=== PATIENT | female | born 1980 ===

== ENCOUNTER 2018-03-02 13:26 | Emergency (ER) | payer MEDICAID, OTHER ==
[~2018-03-02] VITALS: Ht 157.5 cm; Wt 105.6 kg
[~2018-03-02 13:26] MED LIST: ACYC-113; CETI-18 PO; HYDR1TAB12; IBUP-1223 PO; IRON1TAB62 PO; LORA0.5T PO; OMEP-110; OXYC15TA60 PO; Vit D; Vitamin B12 inj
[2018-03-02 14:15] LABS: BASOPHILS # (AUTO) 0.06 x10^3/uL (0-0.1); BASOPHILS % (AUTO) 1 % (0-1); EOSINOPHILS # (AUTO) 0.07 x10^3/uL (0-0.4); EOSINOPHILS % (AUTO) 1 % (1-7); LYMPHOCYTES # (AUTO) 1.54 x10^3/uL (1-3.4); LYMPHOCYTES % (AUTO) 17 % (22-44); MD NO; MEAN CORPUSCULAR HEMOGLOBIN 33.7 pg (27.0-34.8); MEAN CORPUSCULAR HGB CONC 33.6 g/dL (32.4-35.8); MEAN CORPUSCULAR VOLUME 100.3 fL (80-100); MEAN PLATELET VOLUME 7.1 fL (7.4-10.4); MONOCYTES % (AUTO) 6 % (2-9); NEUTROPHILS # (AUTO) 6.87 x10^3/uL (1.8-6.8); NEUTROPHILS % (AUTO) 76 % (42-75); PLATELET COUNT 408 x10^3/uL (130-400); RED BLOOD COUNT 4.07 x10^6/uL (3.82-5.3)
[2018-03-02 14:28] LABS: ALANINE AMINOTRANSFERASE 36 U/L (12-78); ALBUMIN 3.2 g/dL (3.4-5.0); ANION GAP 11 mmol/L (5-15); CALCIUM 8.4 mg/dL (8.5-10.1); CHLORIDE 111 mmol/L (98-107); CREATININE 0.77 mg/dL (0.55-1.02)
[2018-03-02 14:31] LABS: ALKALINE PHOSPHATASE 54 U/L (45-117); BILIRUBIN,TOTAL 0.3 mg/dL (0.2-1.0); TOTAL PROTEIN 6.9 g/dL (6.4-8.2)
[2018-03-02 15:49] VITALS: BP 144/88
== END 2018-03-02 15:48 | disposition home or self-care (01) ==
LOC: ED 15:40
DX: L24.5 Irritant contact dermatitis due to other chemical products (principal)
CPT/HCPCS: 36415; 80053; 85025; 99284; J7512

== ENCOUNTER 2018-07-09 23:53 | Inpatient (IN) | payer MEDICAID ==
[~2018-07-09] VITALS: Ht 160 cm; Wt 86.0 kg
[2018-07-10] MEDS ORDERED: ONDANSETRON 2MG/ML, 2ML ONE (00:25)
[2018-07-10] MEDS ORDERED: MORPHINE SULFATE 4 MG/ML, 1ML ONE (00:25)
[2018-07-10 00:30] LABS: BASOPHILS # (AUTO) 0.07 x10^3/uL (0-0.1); BASOPHILS % (AUTO) 1 % (0-1); EOSINOPHILS # (AUTO) 0.08 x10^3/uL (0-0.4); EOSINOPHILS % (AUTO) 1 % (1-7); LYMPHOCYTES # (AUTO) 1.96 x10^3/uL (1-3.4); LYMPHOCYTES % (AUTO) 22 % (22-44); MD NO; MEAN CORPUSCULAR HGB CONC 33.7 g/dL (32.4-35.8); MEAN CORPUSCULAR VOLUME 89.2 fL (80-100); MEAN PLATELET VOLUME 7.3 fL (7.4-10.4); MONOCYTES # (AUTO) 0.56 x10^3/uL (0.2-0.8); MONOCYTES % (AUTO) 6 % (2-9); NEUTROPHILS # (AUTO) 6.28 x10^3/uL (1.8-6.8); NEUTROPHILS % (AUTO) 70 % (42-75); PLATELET COUNT 353 x10^3/uL (130-400); RED BLOOD COUNT 2.96 x10^6/uL (3.82-5.3); RED CELL DISTRIBUTION WIDTH 16.6 % (9.6-15.2)
[2018-07-10] MEDS ORDERED: ONDANSETRON 2MG/ML, 2ML IVPush ONE (00:30)
[2018-07-10] MEDS ORDERED: MORPHINE SULFATE 4 MG/ML, 1ML IVPush PRN ×2 (00:30→02:00)
[2018-07-10 00:40] LABS: ALANINE AMINOTRANSFERASE 32 U/L (12-78); ANION GAP 13 mmol/L (5-15); CALCIUM 8.3 mg/dL (8.5-10.1); CHLORIDE 104 mmol/L (98-107); CREATININE 0.68 mg/dL (0.55-1.02); INTERNATIONAL NORMALIZED RATIO 0.99 (0.93-1.1); PROTHROMBIN TIME 10.5 Seconds (9.6-11.5)
[2018-07-10 00:45] LABS: ALKALINE PHOSPHATASE 86 U/L (45-117); BILIRUBIN,TOTAL 0.5 mg/dL (0.2-1.0); TOTAL PROTEIN 6.2 g/dL (6.4-8.2)
[2018-07-10] MEDS ORDERED: OMEP10CA4 PO (01:00)
[2018-07-10] MEDS ORDERED: PANTOPRAZOLE 40 MG IV IVPush STA (01:14)
[2018-07-10] MEDS ORDERED: PANTOPRAZOLE 40 MG IV ONE (01:18)
[2018-07-10] MEDS ORDERED: ONDANSETRON 2MG/ML, 2ML IVPush PRN ×2 (02:00)
[2018-07-10] MEDS ORDERED: PANTOPRAZOLE 80 MG in SODIUM CHLORIDE 0.9% 100 ML IV SCH (02:00)
[2018-07-10] MEDS ORDERED: PANTOPRAZOLE 80 MG in SODIUM CHLORIDE 0.9% 50 ML IV ONE (02:00)
[2018-07-10] MEDS: LACTATED RINGERS 1,000 ML IV SCH ×3 (02:26→21:37)
[2018-07-10 02:34] VITALS: BP 109/66
[2018-07-10 07:27] VITALS: BP 97/63
[2018-07-10] MEDS ORDERED: SODIUM CHLORIDE 0.9% 1,000ML IVBOLUS ONE (09:00)
[2018-07-10] MEDS: HYDROmorphone 2 MG/ML, 1ML IVPush PRN ×2 (09:11→21:37)
[2018-07-10] MEDS ORDERED: MIDAZOLAM 1 MG/ML, 2ML ONE (10:23)
[2018-07-10] MEDS ORDERED: FENTANYL PF 100 MCG/2ML ONE ×2 (10:23→11:50)
[2018-07-10 10:33] VITALS: BP 96/63
[2018-07-10] MEDS ORDERED: EPHEDRINE 50 MG/ML, 1ML ONE (10:46)
[2018-07-10] MEDS ORDERED: PROPOFOL 10 MG/ML, 20ML ONE (10:46)
[2018-07-10] MEDS ORDERED: HALOPERIDOL 5 MG/ML IV PRN (11:00)
[2018-07-10] MEDS ORDERED: LORazepam 2 MG/ML, 1ML IVPush PRN (11:00)
[2018-07-10] MEDS ORDERED: HYDROmorphone 2 MG/ML, 1ML IVPush PRN (11:00)
[2018-07-10] MEDS ORDERED: MEPERIDINE/PF 25MG/0.5ML IVPush PRN (11:00)
[2018-07-10] MEDS ORDERED: OXYcodone 5 MG/5 ML ORAL.SOL UDC PO PRN (11:00)
[2018-07-10] MEDS ORDERED: FENTANYL PF 100 MCG/2ML IV PRN (11:00)
[2018-07-10] MEDS ORDERED: PROMETHAZINE 25 MG/ML, 1ML IV PRN (11:00)
[2018-07-10] MEDS ORDERED: HALOPERIDOL 5 MG/ML ONE (11:30)
[2018-07-10] MEDS ORDERED: EPINEPHRINE SYRINGE 0.1 MG/ML, 10ML ONE (11:55)
[2018-07-10 13:02] VITALS: BP 108/74
[2018-07-10] MEDS: PANTOPRAZOLE 40 MG IV IVPush SCH (21:44)
[2018-07-10 21:54] VITALS: BP 105/67
[2018-07-11 01:48] VITALS: BP 108/73
[2018-07-11] MEDS: LACTATED RINGERS 1,000 ML IV SCH (04:14)
[2018-07-11 06:07] LABS: MEAN CORPUSCULAR HEMOGLOBIN 29.8 pg (27.0-34.8); MEAN CORPUSCULAR HGB CONC 32.6 g/dL (32.4-35.8); MEAN CORPUSCULAR VOLUME 91.4 fL (80-100); MEAN PLATELET VOLUME 7.5 fL (7.4-10.4); PLATELET COUNT 280 x10^3/uL (130-400); RED BLOOD COUNT 2.46 x10^6/uL (3.82-5.3); RED CELL DISTRIBUTION WIDTH 17.7 % (9.6-15.2)
[2018-07-11 06:10] LABS: ALANINE AMINOTRANSFERASE 28 U/L (12-78); ALBUMIN 2.3 g/dL (3.4-5.0); ANION GAP 9 mmol/L (5-15); CALCIUM 7.8 mg/dL (8.5-10.1); CHLORIDE 108 mmol/L (98-107); CREATININE 0.47 mg/dL (0.55-1.02)
[2018-07-11 06:12] LABS: ALKALINE PHOSPHATASE 75 U/L (45-117); BILIRUBIN,TOTAL 0.3 mg/dL (0.2-1.0)
[2018-07-11 07:02] VITALS: BP 93/65
[2018-07-11 07:19] LABS: BASOPHILS # (AUTO) 0.02 x10^3/uL (0-0.1); BASOPHILS % (AUTO) 1 % (0-1); EOSINOPHILS # (AUTO) 0.06 x10^3/uL (0-0.4); EOSINOPHILS % (AUTO) 1 % (1-7); LYMPHOCYTES # (AUTO) 1.41 x10^3/uL (1-3.4); LYMPHOCYTES % (AUTO) 31 % (22-44); MD SCAN; MONOCYTES # (AUTO) 0.35 x10^3/uL (0.2-0.8); MONOCYTES % (AUTO) 8 % (2-9); NEUTROPHILS # (AUTO) 2.73 x10^3/uL (1.8-6.8); NEUTROPHILS % (AUTO) 60 % (42-75)
[2018-07-11 08:10] VITALS: BP 102/66
[2018-07-11] MEDS: PANTOPRAZOLE 40 MG IV IVPush SCH (08:11)
[2018-07-11] MEDS ORDERED: ACETAMINOPHEN 650 MG/20.3 ML UDC PO PRN (08:30)
[2018-07-11] MEDS ORDERED: PANTOPROZOLE 40MG TABLET PO SCH (08:30)
[2018-07-11] MEDS ORDERED: PANT40TA5 PO (12:51)
[2018-07-11] MEDS ORDERED: FERR325T16 PO (12:51)
[2018-07-12] MEDS ORDERED: FERROUS GLUCONATE 324 MG TABLET PO SCH (08:00)
== END 2018-07-11 17:11 | disposition home or self-care (01) | DRG 377 ==
LOC: ED 07-10 00:37 → EDIP 07-10 01:42 → 4EST 07-10 02:25
PROVIDERS: ADMIT Internal Medicine; ATTEND Internal Medicine
PROC: 0W3P8ZZ Control Bleeding in Gastrointestinal Tract, Via Natural or Artificial Opening Endoscopic (ICD-10-PCS; principal; 2018-07-10 11:00)
DX: K28.4 Chronic or unspecified gastrojejunal ulcer with hemorrhage (principal); E43 Unspecified severe protein-calorie malnutrition; D62 Acute posthemorrhagic anemia; F10.10 Alcohol abuse, uncomplicated; Y90.9 Presence of alcohol in blood, level not specified; K44.9 Diaphragmatic hernia without obstruction or gangrene; Z82.49 Family history of ischemic heart disease and other diseases of the circulatory system; Z98.84 Bariatric surgery status; Z68.33 Body mass index [BMI] 33.0-33.9, adult
CPT/HCPCS: 36415; 71045; 80053; 82962; 83690; 84703; 85014; 85018; 85025; 85610; 85730; 86850; 86900; 96374; G0378; J1170; J2250; J2405; J2704; J3010; C9113; J7030; J7120

== ENCOUNTER 2018-07-13 18:16 | Emergency (ER) | payer MEDICAID, OTHER ==
[~2018-07-13] VITALS: Ht 160 cm; Wt 91.3 kg
[~2018-07-13 18:16] MED LIST changes: +FERR325T16 PO; +OMEP10CA4 PO; +PANT40TA5 PO
[2018-07-13] MEDS ORDERED: MAALOX/HYOSCYAMINE/LIDOCAINE 45 ML BTL ONE (18:57)
[2018-07-13] MEDS ORDERED: MORPHINE SULFATE 4 MG/ML, 1ML ONE ×2 (18:57→20:08)
[2018-07-13] MEDS ORDERED: ONDANSETRON 2MG/ML, 2ML ONE (18:57)
[2018-07-13] MEDS ORDERED: FAMOTIDINE 20 MG/2 ML ONE (18:58)
[2018-07-13 19:00] LABS: MEAN CORPUSCULAR VOLUME 90.8 fL (80-100); MEAN PLATELET VOLUME 7.2 fL (7.4-10.4); PLATELET COUNT 497 x10^3/uL (130-400); RED BLOOD COUNT 3.27 x10^6/uL (3.82-5.3); RED CELL DISTRIBUTION WIDTH 18.6 % (9.6-15.2)
[2018-07-13] MEDS ORDERED: MAALOX/HYOSCYAMINE/LIDOCAINE 45 ML BTL PO ONE (19:00)
[2018-07-13] MEDS ORDERED: FAMOTIDINE 20 MG/2 ML IVP ONE (19:00)
[2018-07-13] MEDS ORDERED: ONDANSETRON 2MG/ML, 2ML IVPush ONE (19:00)
[2018-07-13 19:01] LABS: MICROSCOPIC NOT IND
[2018-07-13 19:12] LABS: ALANINE AMINOTRANSFERASE 26 U/L (12-78); ALBUMIN 2.8 g/dL (3.4-5.0); ANION GAP 7 mmol/L (5-15); BASOPHILS # (AUTO) 0.02 x10^3/uL (0-0.1); BASOPHILS % (AUTO) 0 % (0-1); CALCIUM 8.3 mg/dL (8.5-10.1); CHLORIDE 107 mmol/L (98-107); CREATININE 0.79 mg/dL (0.55-1.02); EOSINOPHILS # (AUTO) 0.07 x10^3/uL (0-0.4); EOSINOPHILS % (AUTO) 1 % (1-7); LYMPHOCYTES % (AUTO) 20 % (22-44); MD SCAN; MONOCYTES # (AUTO) 0.61 x10^3/uL (0.2-0.8); MONOCYTES % (AUTO) 9 % (2-9); NEUTROPHILS # (AUTO) 5.05 x10^3/uL (1.8-6.8); NEUTROPHILS % (AUTO) 71 % (42-75)
[2018-07-13 19:14] LABS: ALKALINE PHOSPHATASE 87 U/L (45-117); BILIRUBIN,TOTAL 0.3 mg/dL (0.2-1.0); TOTAL PROTEIN 6.3 g/dL (6.4-8.2)
[2018-07-13] MEDS: MORPHINE SULFATE 4 MG/ML, 1ML IVPush PRN ×2 (19:31→20:13)
[2018-07-13] MEDS ORDERED: METOCLOPRAMIDE 5 MG/ML, 2ML IVPush ONE (20:00)
[2018-07-13] MEDS ORDERED: METOCLOPRAMIDE 5 MG/ML, 2ML ONE (20:08)
[2018-07-13] MEDS ORDERED: ZIPRASIDONE 20 MG INJ IM ONE ×2 (21:00→21:37)
[2018-07-13 21:06] VITALS: BP 116/83
[2018-07-13] MEDS ORDERED: OMNIPAQUE 350 MG/ML, 100ML BOTTLE ONE (21:14)
== END 2018-07-13 22:14 | disposition home or self-care (01) ==
LOC: ED 18:54
DX: K29.20 Alcoholic gastritis without bleeding (principal); F10.10 Alcohol abuse, uncomplicated
CPT/HCPCS: 36415; 74177; 80053; 81003; 83690; 85025; 96372; 96374; 96375; 96376; 99284; J2405; J2765; J3486; J3490; Q9967

== ENCOUNTER 2018-11-02 18:48 | Emergency (ER) | payer MEDICAID, OTHER ==
[~2018-11-02 18:48] MED LIST changes: -HYDR1TAB12; +HYDR1TAB13
--- NOTE | 2018-11-02 19:07 | NUR ---
THIS RN ATTEMPTED TO TRIAGE. NO ANSWERx1 IN LOBBY
--- NOTE | 2018-11-02 19:13 | NUR ---
THIS RN ATTEMPTED TO TRIAGE. NO ANSWERx2 IN LOBBY
--- NOTE | 2018-11-02 19:35 | NUR ---
THIS RN ATTEMPTED TO TRIAGE. NO ANSWERx3 IN LOBBY
== END 2018-11-02 19:49 | disposition left against medical advice (07) ==
LOC: ED 19:43
DX: Z02.89 Encounter for other administrative examinations (principal); Z53.21 Procedure and treatment not carried out due to patient leaving prior to being seen by health care provider

== ENCOUNTER 2018-11-11 23:38 | Emergency (ER) | payer MEDICAID ==
[~2018-11-11] VITALS: Ht 162.6 cm; Wt 73.0 kg
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
[2018-11-12] MEDS ORDERED: ACETAMINOPHEN 500 MG TABLET ONE (00:18)
--- NOTE | 2018-11-12 00:23 | NUR ---
pt medicated per emar. pt tolertaed well. pt provided ice pack as well.
[2018-11-12] MEDS ORDERED: ACETAMINOPHEN 500 MG TABLET PO ONE (00:30)
--- NOTE | 2018-11-12 01:01 | NUR ---
pt sleeping in [facility]. resps even and unlabored. bp/spo2 monitors in place. call light within reach.
[2018-11-12 01:28] VITALS: BP 107/58
== END 2018-11-12 01:30 | disposition home or self-care (01) ==
LOC: ED 11-12 01:00
DX: S00.33XA Contusion of nose, initial encounter (principal); S00.531A Contusion of lip, initial encounter; S00.83XA Contusion of other part of head, initial encounter; Y04.8XXA Assault by other bodily force, initial encounter; Y93.89 Activity, other specified; Y92.89 Other specified places as the place of occurrence of the external cause; Y99.8 Other external cause status
CPT/HCPCS: 70450; 70486; 99284

== ENCOUNTER 2018-11-12 12:11 | Inpatient (IN) | payer MEDICAID, OTHER ==
[~2018-11-12] VITALS: Ht 157.5 cm; Wt 83.9 kg
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
[2018-11-12] MEDS ORDERED: AMPICILLIN/SULBACTAM 3 GM in SODIUM CHLORIDE 0.9% 100 ML IV ONE (13:00)
[2018-11-12 13:10] LABS: ALANINE AMINOTRANSFERASE 29 U/L (12-78); ALBUMIN 2.9 g/dL (3.4-5.0); ANION GAP 6 mmol/L (5-15); CALCIUM 8.3 mg/dL (8.5-10.1); CHLORIDE 108 mmol/L (98-107); CREATININE 0.76 mg/dL (0.55-1.02)
[2018-11-12 13:13] LABS: ALKALINE PHOSPHATASE 85 U/L (45-117); BILIRUBIN,TOTAL 0.6 mg/dL (0.2-1.0); TOTAL PROTEIN 6.9 g/dL (6.4-8.2)
[2018-11-12] MEDS ORDERED: MORPHINE SULFATE 4 MG/ML, 1ML ONE (13:14)
--- NOTE | 2018-11-12 13:30 | NUR ---
PT BACK FROM IMAGING AT THIS TIME. PT REQUESTING PAIN MEDICATION FOR 9/10 PAIN. DISCUSSED WITH MAXIMINO CM, AWAITING ORDERS. FRIEND AT BEDSIDE. PT AO X 4. SKIN PWD. RESP EVEN AND EQAUL. CALL LIGHT WITHIN REACH. WILL CONT TO MONITOR PT.
[2018-11-12] MEDS ORDERED: OMNIPAQUE 350 MG/ML, 75ML BOTTLE ONE (13:35)
[2018-11-12 13:50] LABS: MD YES; MEAN CORPUSCULAR HGB CONC 30.2 g/dL (32.4-35.8); MEAN CORPUSCULAR VOLUME 69.5 fL (80-100); MEAN PLATELET VOLUME 7.8 fL (7.4-10.4); PLATELET COUNT 356 x10^3/uL (130-400); RED BLOOD COUNT 4.19 x10^6/uL (3.82-5.3); RED CELL DISTRIBUTION WIDTH 24.6 % (9.6-15.2)
[2018-11-12] MEDS ORDERED: hydrALAzine 20 MG/ML, 1ML IVPush PRN (14:30)
[2018-11-12] MEDS ORDERED: MORPHINE SULFATE 4 MG/ML, 1ML IVPush ONE (14:30)
[2018-11-12] MEDS ORDERED: ACETAMINOPHEN 325 MG TABLET PO PRN (14:30)
[2018-11-12] MEDS ORDERED: DOCUSATE 100 MG CAPSULE PO PRN (14:30)
[2018-11-12] MEDS ORDERED: IBUPROFEN 600 MG TABLET PO PRN (14:30)
[2018-11-12] MEDS ORDERED: KETOROLAC 30 MG/1 ML IV PRN (14:30)
--- NOTE | 2018-11-12 14:31 | NUR ---
PT CURRENTLY DOZING ON CHINMAY. PT AWAKENS TO NAME BEING CALLED. PT REQUESTING PAIN MEDICATION. PT REPORTS PAIN IS 9/10. PT MEDICATED ORDERED. PT AO X 4. SKIN PWD. RESP EVEN AND EQAUL. FRIEND AT BEDSIDE. WILL CONT TO MONITOR PT.
[2018-11-12 14:42] LABS: ANISOCYTOSIS 1+; BAND#(MANUAL) 1.44 x10^3/uL; BANDS%(MANUAL) 13 % (0-7); BASOS#(MANUAL) 0.11 x10^3/uL (0-0.1); BASOS% (MANUAL) 1 % (0-1); LYMPH#(MANUAL) 0.78 x10^3/uL (1-3.4); LYMPHS% (MANUAL) 7 % (22-44); MICROCYTOSIS 2+; MONOS#(MANUAL) 0.22 x10^3/uL (0.3-2.7); MONOS% (MANUAL) 2 % (2-9); SEG#(MANUAL) 8.55 x10^3/uL (1.8-6.8); SEGS% (MANUAL) 77 % (42-75)
[2018-11-12 14:43] LABS: <PLATELET ESTIMATE> ADEQUATE; <PLT MORPHOLOGY> NORMAL PLT MORPH; OVALOCYTES 1+; POLYCHROMASIA 1+
--- NOTE | 2018-11-12 15:04 | NUR ---
REPORT TO ABIGAIL COON ON MED/SURG. PT DOZING ON CHINMAY. NAD NOTED. SKIN PWD. RESP EVEN AND UNLABORED. CALL LIGHT WITHIN REACH. WILL CONT TO MONITOR PT.
[2018-11-12 16:03] VITALS: BP 108/71
[2018-11-12] MEDS: morphine SULFATE 10 MG/ML, 1ML IVPush PRN (16:42)
[2018-11-12] MEDS ORDERED: LORazepam 2 MG/ML, 1ML IV PRN ×5 (19:00)
[2018-11-12] MEDS ORDERED: LORazepam 1MG TABLET PO PRN ×4 (19:00)
[2018-11-12 19:25] VITALS: BP 109/71
[2018-11-12] MEDS: AMPICILLIN/SULBACTAM 3 GM in SODIUM CHLORIDE 0.9% 100 ML IV SCH (21:04)
[2018-11-13 01:43] VITALS: BP 119/76
[2018-11-13] MEDS: AMPICILLIN/SULBACTAM 3 GM in SODIUM CHLORIDE 0.9% 100 ML IV SCH ×4 (02:20→20:19)
[2018-11-13] MEDS: morphine SULFATE 10 MG/ML, 1ML IVPush PRN ×3 (05:16→22:18)
[2018-11-13 05:47] LABS: CHLORIDE 111 mmol/L (98-107)
[2018-11-13 06:07] LABS: ANION GAP 8 mmol/L (5-15); CALCIUM 8.2 mg/dL (8.5-10.1); CREATININE 0.48 mg/dL (0.55-1.02)
[2018-11-13 06:43] VITALS: BP 119/77
[2018-11-13 07:13] LABS: MEAN CORPUSCULAR VOLUME 69.9 fL (80-100); MEAN PLATELET VOLUME 7.7 fL (7.4-10.4); PLATELET COUNT 289 x10^3/uL (130-400); RED BLOOD COUNT 3.73 x10^6/uL (3.82-5.3); RED CELL DISTRIBUTION WIDTH 24.6 % (9.6-15.2)
[2018-11-13] MEDS ORDERED: LIDOCAINE 1%-EPI 1:100K, 20ML ONE (07:21)
[2018-11-13] MEDS ORDERED: FENTANYL PF 100 MCG/2ML ONE ×3 (07:26→09:00)
[2018-11-13 07:27] LABS: MD YES
[2018-11-13 07:29] LABS: BAND#(MANUAL) 0.28 x10^3/uL; BANDS%(MANUAL) 3 % (0-7); BASOS#(MANUAL) 0.09 x10^3/uL (0-0.1); BASOS% (MANUAL) 1 % (0-1); EOS#(MANUAL) 0.09 x10^3/uL (0.0-0.4); EOS% (MANUAL) 1 % (1-7); LYMPH#(MANUAL) 1.12 x10^3/uL (1-3.4); LYMPHS% (MANUAL) 12 % (22-44); MONOS#(MANUAL) 0.28 x10^3/uL (0.3-2.7); MONOS% (MANUAL) 3 % (2-9); SEG#(MANUAL) 7.44 x10^3/uL (1.8-6.8); SEGS% (MANUAL) 80 % (42-75)
[2018-11-13 07:31] LABS: ANISOCYTOSIS 1+
[2018-11-13 07:33] LABS: MICROCYTOSIS 2+; OVALOCYTES 1+; POLYCHROMASIA 1+
[2018-11-13 07:34] LABS: <PLATELET ESTIMATE> ADEQUATE; <PLT MORPHOLOGY> NORMAL PLT MORPH
[2018-11-13] MEDS ORDERED: HALOPERIDOL 5 MG/ML IV PRN (08:00)
[2018-11-13] MEDS ORDERED: MEPERIDINE/PF 25MG/0.5ML IVPush PRN (08:00)
[2018-11-13] MEDS ORDERED: METOPROLOL 1 MG/ML, 5ML IV PRN (08:00)
[2018-11-13] MEDS ORDERED: OXYcodone 5 MG/5 ML ORAL.SOL UDC PO PRN (08:00)
[2018-11-13] MEDS ORDERED: hydrALAzine 20 MG/ML, 1ML IV PRN (08:00)
[2018-11-13] MEDS ORDERED: DIPHENHYDRAMINE 50 MG/ML, 1ML IVPush PRN (08:00)
[2018-11-13] MEDS ORDERED: PROMETHAZINE 25 MG/ML, 1ML IV PRN (08:00)
[2018-11-13] MEDS ORDERED: PROCHLORPERAZINE 5 MG/ML, 2ML IV PRN (08:00)
[2018-11-13] MEDS ORDERED: LABETALOL 5MG/ML, 20ML IV PRN (08:00)
[2018-11-13] MEDS ORDERED: HYDROmorphone 2 MG/ML, 1ML IVPush PRN (08:00)
[2018-11-13] MEDS ORDERED: ONDANSETRON 2MG/ML, 2ML ONE (08:21)
[2018-11-13] MEDS ORDERED: PROPOFOL 10 MG/ML, 20ML ONE (08:21)
[2018-11-13] MEDS ORDERED: NEOSTIGMINE 1 MG/ML, 10ML ONE (08:21)
[2018-11-13] MEDS ORDERED: SUCCINYLCHOLINE 20 MG/ML, 10ML ONE (08:21)
[2018-11-13] MEDS ORDERED: GLYCOPYRROLATE 0.2MG/1ML, 5ML ONE (08:21)
[2018-11-13] MEDS ORDERED: ROCURONIUM 10MG/ML,5ML ONE (08:21)
[2018-11-13] MEDS ORDERED: CEFAZOLIN 1,000 MG ONE (08:21)
[2018-11-13] MEDS ORDERED: DEXAMETHASONE 4 MG/ML, 1ML ONE (08:21)
[2018-11-13] MEDS: FENTANYL PF 100 MCG/2ML IV PRN ×2 (09:00→09:12)
[2018-11-13] MEDS ORDERED: OXYcodone 5 MG/5 ML ORAL.SOL UDC ONE (09:14)
[2018-11-13] MEDS ORDERED: IBUPROFEN 600 MG TABLET PO PRN (10:30)
[2018-11-13] MEDS ORDERED: ACETAMINOPHEN 325 MG TABLET PO PRN (10:30)
[2018-11-13] MEDS: MULTIVITAMINS/MINERALS TABLET PO SCH (10:54)
[2018-11-13] MEDS: HYDROcodone/APAP 5/325 TABLET PO PRN ×2 (10:54→20:19)
[2018-11-13] MEDS: ONDANSETRON ODT 4 MG PO PRN ×2 (11:09→15:49)
--- NOTE | 2018-11-13 11:34 | NUR ---
REC: pureed diet with thin liquids (no carbonation or straws during healing process); aspiration precautions; swallow precautions posted in room Addendum: 11/13/18 at 1134 by Maude ERVIN Amended: Links added.
[2018-11-13 14:00] VITALS: BP 112/75
[2018-11-13] MEDS ORDERED: DIPHENHYDRAMINE 25 MG CAPSULE PO ONE (14:00)
[2018-11-13 19:20] VITALS: BP 106/68
[2018-11-14 00:07] VITALS: BP 109/69
[2018-11-14] MEDS: HYDROcodone/APAP 5/325 TABLET PO PRN ×5 (00:28→22:09)
[2018-11-14] MEDS: ONDANSETRON ODT 4 MG PO PRN ×2 (00:31→04:29)
[2018-11-14] MEDS: AMPICILLIN/SULBACTAM 3 GM in SODIUM CHLORIDE 0.9% 100 ML IV SCH ×4 (02:47→21:11)
[2018-11-14] MEDS: morphine SULFATE 10 MG/ML, 1ML IVPush PRN ×3 (04:29→19:47)
[2018-11-14] MEDS: MULTIVITAMINS/MINERALS TABLET PO SCH (07:22)
[2018-11-14 07:50] VITALS: BP 100/62
[2018-11-14 13:43] VITALS: BP 99/61
[2018-11-14 19:12] VITALS: BP 96/57
[2018-11-14] MEDS: LORazepam 0.5MG TABLET PO PRN (21:11)
[2018-11-15 01:17] VITALS: BP 93/58
[2018-11-15] MEDS: AMPICILLIN/SULBACTAM 3 GM in SODIUM CHLORIDE 0.9% 100 ML IV SCH ×3 (03:12→14:41)
[2018-11-15 03:15] VITALS: BP 95/61
[2018-11-15] MEDS: HYDROcodone/APAP 5/325 TABLET PO PRN ×3 (03:17→13:05)
[2018-11-15] MEDS: ONDANSETRON ODT 4 MG PO PRN (03:17)
[2018-11-15] MEDS: morphine SULFATE 10 MG/ML, 1ML IVPush PRN ×2 (05:27→11:50)
[2018-11-15 07:28] VITALS: BP 109/68
[2018-11-15] MEDS: MULTIVITAMINS/MINERALS TABLET PO SCH (08:37)
[2018-11-15] MEDS ORDERED: PANTOPROZOLE 40MG TABLET PO SCH (10:00)
[2018-11-15 12:41] VITALS: BP 110/63
[2018-11-15] MEDS: LORazepam 0.5MG TABLET PO PRN (15:03)
[2018-11-15] MEDS ORDERED: PANT40TA5 PO (15:50)
[2018-11-15] MEDS ORDERED: IBUP-1222 PO (15:50)
[2018-11-15] MEDS ORDERED: ONDA4TAB13 PO (15:50)
[2018-11-15] MEDS ORDERED: ACET325T14 PO ×2 (15:50)
[2018-11-15] MEDS ORDERED: AMOX1TAB64 PO (15:50)
== END 2018-11-15 18:37 | disposition home or self-care (01) | DRG 603 ==
LOC: ED 13:37 → EDIP 14:19 → 3NE 15:18
PROVIDERS: ADMIT Internal Medicine; ATTEND Internal Medicine
DX: L03.211 Cellulitis of face (principal); D63.8 Anemia in other chronic diseases classified elsewhere; D72.825 Bandemia; F10.10 Alcohol abuse, uncomplicated; I10 Essential (primary) hypertension; J01.00 Acute maxillary sinusitis, unspecified; J32.0 Chronic maxillary sinusitis; K02.9 Dental caries, unspecified; K04.7 Periapical abscess without sinus; G89.29 Other chronic pain; R59.9 Enlarged lymph nodes, unspecified; Z59.0 Homelessness; Z98.84 Bariatric surgery status
CPT/HCPCS: 36415; 70487; 80048; 80053; 83605; 84703; 85025; 87040; 93005; G0378; J0295; J0690; J1100; J2405; J2704; J2710; J3010; J3490; Q0162; Q9967; J0330; J2060; J2270; Q0163

== ENCOUNTER 2018-12-28 11:00 | Emergency (ER) | payer SELFPAY ==
[~2018-12-28] VITALS: Ht 157.5 cm; Wt 79.0 kg
[~2018-12-28 11:00] MED LIST changes: +ACET325T14 PO; +AMOX1TAB64 PO; +IBUP-1222 PO; +ONDA4TAB13 PO
[2018-12-28 11:24] VITALS: BP 123/69
--- NOTE | 2018-12-28 12:44 | NUR ---
ULTRASOUND ATTEMPTED TO CALL PT X3 TIMES- PT NOT IN LOBBY.
== END 2018-12-28 14:54 | disposition left against medical advice (07) ==
LOC: ED 14:48
DX: R10.10 Upper abdominal pain, unspecified (principal)
CPT/HCPCS: 99281

== ENCOUNTER 2019-02-14 15:14 | Emergency (ER) | payer MEDICAID, OTHER ==
[~2019-02-14] VITALS: Ht 157.5 cm; Wt 77.0 kg
[2019-02-14 15:16] VITALS: BP 112/61
== END 2019-02-14 16:53 | disposition home or self-care (01) ==
LOC: ED 16:47
DX: S39.012A Strain of muscle, fascia and tendon of lower back, initial encounter (principal); S16.1XXA Strain of muscle, fascia and tendon at neck level, initial encounter; S70.02XA Contusion of left hip, initial encounter; M54.42 Lumbago with sciatica, left side; R51 Headache; Y04.0XXA Assault by unarmed brawl or fight, initial encounter; Y93.89 Activity, other specified; Y92.89 Other specified places as the place of occurrence of the external cause; Y99.8 Other external cause status
CPT/HCPCS: 70450; 72110; 72125; 72170; 96372; 99284; J1885

== ENCOUNTER 2019-02-23 11:37 | Emergency (ER) | payer MEDICAID, OTHER ==
[~2019-02-23] VITALS: Ht 157.5 cm; Wt 77.5 kg
[2019-02-23 13:59] VITALS: BP 112/74
== END 2019-02-23 15:22 | disposition home or self-care (01) ==
LOC: ED 15:12
DX: K29.21 Alcoholic gastritis with bleeding (principal); Z90.49 Acquired absence of other specified parts of digestive tract
CPT/HCPCS: 36415; 80053; 83690; 85025; 85610; 99284

== ENCOUNTER 2019-05-13 10:47 | Emergency (ER) | payer MEDICAID ==
[~2019-05-13] VITALS: Ht 160 cm; Wt 78.0 kg
[~2019-05-13 10:47] MED LIST changes: -OMEP10CA4 PO; +OMEP10CA5 PO
--- NOTE | 2019-05-13 10:58 | NUR ---
NA X 1 PT IN RESTROOM
[2019-05-13 11:03] VITALS: BP 138/63
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
--- NOTE | 2019-05-13 11:42 | NUR ---
DISCHARGE INSTRUCTIONS REVIEWED, NO QUESTIONS AT THIS TIME.
== END 2019-05-13 11:43 | disposition home or self-care (01) ==
LOC: ED 11:25
DX: H66.012 Acute suppurative otitis media with spontaneous rupture of ear drum, left ear (principal); H60.62 Unspecified chronic otitis externa, left ear; F17.210 Nicotine dependence, cigarettes, uncomplicated
CPT/HCPCS: 99283

== ENCOUNTER 2019-09-17 16:38 | Emergency (ER) | payer MEDICAID ==
[~2019-09-17] VITALS: Ht 157.5 cm; Wt 76.0 kg
[2019-09-17 17:05] VITALS: BP 131/75
--- NOTE | 2019-09-17 17:15 | NUR ---
PT HERE WITH C/O COUGH X 3 DAYS, SPUTUM GREEN, SUBJECTIVE FEVERS AT HOME.
[2019-09-17] MEDS ORDERED: BENZONATATE 100 MG CAPSULE ONE (17:31)
[2019-09-17] MEDS ORDERED: IBUPROFEN 200 MG TABLET ONE (17:32)
[2019-09-17] MEDS ORDERED: MAALOX/HYOSCYAMINE/LIDOCAINE 45 ML BTL ONE (17:32)
[2019-09-17] MEDS ORDERED: ACETAMINOPHEN 325 MG TABLET ONE (17:32)
--- NOTE | 2019-09-17 17:34 | NUR ---
PT MEDICATED PER ORDERS.
[2019-09-17] MEDS ORDERED: IBUPROFEN 200 MG TABLET PO ONE (18:00)
[2019-09-17] MEDS ORDERED: MAALOX/HYOSCYAMINE/LIDOCAINE 45 ML BTL PO ONE (18:00)
[2019-09-17] MEDS ORDERED: ACETAMINOPHEN 325 MG TABLET PO ONE (18:00)
[2019-09-17] MEDS ORDERED: BENZONATATE 100 MG CAPSULE PO ONE (18:00)
[2019-09-17 18:16] LABS: RAPID INFLUENZA A POSITIVE (Negative); RAPID INFLUENZA B Negative (Negative)
--- NOTE | 2019-09-17 19:31 | NUR ---
Patient/Caregiver given discharge instructions and they have confirmed that they understand the instructions. Patient ambulatory with steady gait.
== END 2019-09-17 19:33 | disposition home or self-care (01) ==
LOC: ED 19:20
DX: J10.00 Influenza due to other identified influenza virus with unspecified type of pneumonia (principal); M79.10 Myalgia, unspecified site; F17.210 Nicotine dependence, cigarettes, uncomplicated; Z90.49 Acquired absence of other specified parts of digestive tract
CPT/HCPCS: 71046; 87400; 99284

== ENCOUNTER 2020-01-24 19:48 | Emergency (ER) | payer MEDICAID ==
[~2020-01-24] VITALS: Ht 157.5 cm; Wt 75.0 kg
[2020-01-24 19:51] VITALS: BP 123/73
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
--- NOTE | 2020-01-24 20:54 | NUR ---
Patient given discharge instructions and they have confirmed that they understand the instructions. Patient ambulatory with steady gait.
== END 2020-01-24 20:56 | disposition home or self-care (01) ==
LOC: ED 19:57
DX: S16.1XXA Strain of muscle, fascia and tendon at neck level, initial encounter (principal); S09.90XA Unspecified injury of head, initial encounter; Y04.0XXA Assault by unarmed brawl or fight, initial encounter; Y93.89 Activity, other specified; Y92.488 Other paved roadways as the place of occurrence of the external cause; Y99.8 Other external cause status
CPT/HCPCS: 70450; 72125; 99285

== ENCOUNTER 2020-04-17 13:58 | Emergency (ER) | payer MEDICAID ==
[~2020-04-17] VITALS: Ht 157.5 cm; Wt 75.0 kg
[~2020-04-17 13:58] MED LIST changes: -PANT40TA5 PO; +PANT40TA6 PO
[2020-04-17] MEDS ORDERED: SODIUM CHLORIDE FLUSH 10ML SYR IVF ONE (14:30)
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
--- NOTE | 2020-04-17 14:50 | NUR ---
[facility] blanket provided.
[2020-04-17 14:53] LABS: INTERNATIONAL NORMALIZED RATIO 0.94 (0.93-1.1); MEAN CORPUSCULAR HEMOGLOBIN 20.9 pg (27.0-34.8); MEAN PLATELET VOLUME 7.6 fL (7.4-10.4); PLATELET COUNT 333 x10^3/uL (130-400); PROTHROMBIN TIME 9.7 Seconds (9.6-11.5); RED BLOOD COUNT 4.49 x10^6/uL (3.82-5.3)
[2020-04-17 14:55] LABS: ALANINE AMINOTRANSFERASE 31 U/L (12-78); ALBUMIN 2.8 g/dL (3.4-5.0); ANION GAP 11 mmol/L (5-15); CALCIUM 8.2 mg/dL (8.5-10.1); CHLORIDE 105 mmol/L (98-107); CREATININE 0.64 mg/dL (0.55-1.02); MD YES
[2020-04-17 14:57] LABS: ALKALINE PHOSPHATASE 75 U/L (45-117); BILIRUBIN,TOTAL 0.4 mg/dL (0.2-1.0); TOTAL PROTEIN 6.8 g/dL (6.4-8.2)
[2020-04-17 15:48] LABS: BAND#(MANUAL) 0.14 x10^3/uL; BANDS%(MANUAL) 2 % (0-7); BASOS#(MANUAL) 0.07 x10^3/uL (0-0.1); BASOS% (MANUAL) 1 % (0-1); EOS#(MANUAL) 0.14 x10^3/uL (0.0-0.4); EOS% (MANUAL) 2 % (1-7); LYMPH#(MANUAL) 2.92 x10^3/uL (1-3.4); LYMPHS% (MANUAL) 43 % (22-44); MONOS#(MANUAL) 0.41 x10^3/uL (0.3-2.7); MONOS% (MANUAL) 6 % (2-9); SEG#(MANUAL) 3.13 x10^3/uL (1.8-6.8); SEGS% (MANUAL) 46 % (42-75)
[2020-04-17 15:53] LABS: HYPOCHROMIA 2+; MICROCYTOSIS 2+; OVALOCYTES 1+; POLYCHROMASIA 1+
[2020-04-17 15:54] LABS: <PLATELET ESTIMATE> ADEQUATE; <PLT MORPHOLOGY> NORMAL PLT MORPH; TARGET CELLS 1+
--- NOTE | 2020-04-17 16:27 | NUR ---
UA sent, pt medicated per emar.
[2020-04-17] MEDS ORDERED: SODIUM CHLORIDE 0.9% 1,000ML IVBOLUS ONE (16:30)
[2020-04-17 16:37] LABS: MICROSCOPIC INDICATED
[2020-04-17 17:45] VITALS: BP 137/80
== END 2020-04-17 17:47 | disposition home or self-care (01) ==
LOC: ED 14:29
DX: R55 Syncope and collapse (principal); R42 Dizziness and giddiness; Z90.49 Acquired absence of other specified parts of digestive tract
CPT/HCPCS: 36415; 80053; 81001; 83690; 85025; 85610; 85730; 87086; 93005; 96360; 99284; J7030

== ENCOUNTER 2020-10-04 06:02 | Emergency (ER) | payer MEDICAID, OTHER ==
[~2020-10-04] VITALS: Ht 165.1 cm; Wt 82.0 kg
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
[2020-10-04] MEDS ORDERED: NALOXONE 1 MG/ML, 2ML ONE (06:06)
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
[2020-10-04] MEDS ORDERED: SODIUM CHLORIDE 0.9% 1,000 ML IV ONE (06:30)
[2020-10-04] MEDS ORDERED: SODIUM CHLORIDE 0.9% 1,000ML IVBOLUS ONE ×2 (06:30→10:30)
[2020-10-04] MEDS ORDERED: NALOXONE 0.4 MG/ML, 1ML IVPush PRN (06:30)
[2020-10-04] MEDS ORDERED: SODIUM CHLORIDE FLUSH 10ML SYR IVF ONE (06:30)
--- NOTE | 2020-10-04 06:52 | NUR ---
REPORT FROM KATELYNN HAYES
[2020-10-04 06:54] LABS: BASOPHILS % (AUTO) 1 % (0-1); EOSINOPHILS % (AUTO) 1 % (1-7); LYMPHOCYTES % (AUTO) 15 % (22-44); MEAN CORPUSCULAR HEMOGLOBIN 19.3 pg (27.0-34.8); MEAN PLATELET VOLUME 6.8 fL (7.4-10.4); MONOCYTES % (AUTO) 9 % (2-9); NEUTROPHILS % (AUTO) 75 % (42-75); PLATELET COUNT 361 x10^3/uL (130-400); RED BLOOD COUNT 4.42 x10^6/uL (3.82-5.3); RED CELL DISTRIBUTION WIDTH 21.2 % (9.6-15.2)
[2020-10-04 06:55] LABS: MD NO; MEAN CORPUSCULAR HGB CONC 29.2 g/dL (32.4-35.8)
--- NOTE | 2020-10-04 06:59 | NUR ---
REPORT TO KENNETH HAYES
--- NOTE | 2020-10-04 07:05 | NUR ---
First contact w pt: pt resting in bed, arrousable by name and speaking in full sentences, drowsy but understandable. Pt stated "can you guys call my boyfriend, I want him to know that I'm here". Assured that boyfriend will be notified. Even and unlabored respirations, 100% O2 sat on [address] with warm blankets. VSS. NOWAK.
[2020-10-04 07:07] LABS: ALANINE AMINOTRANSFERASE 56 U/L (12-78); ALBUMIN 3.2 g/dL (3.4-5.0); ANION GAP 9 mmol/L (5-15); CALCIUM 8.5 mg/dL (8.5-10.1); CHLORIDE 108 mmol/L (98-107); CREATININE 1.01 mg/dL (0.55-1.02)
[2020-10-04 07:09] LABS: SALICYLATE LEVEL < 1.7 mg/dL (2.8-20.0)
[2020-10-04 07:11] LABS: ALKALINE PHOSPHATASE 144 U/L (45-117); BILIRUBIN,TOTAL 0.5 mg/dL (0.2-1.0); TOTAL PROTEIN 7.5 g/dL (6.4-8.2)
--- NOTE | 2020-10-04 08:26 | NUR ---
Pt made aware of need for urine sample, resting comfortably in bed.
--- NOTE | 2020-10-04 09:48 | NUR ---
Report given to Raymond HAYES
--- NOTE | 2020-10-04 10:54 | NUR ---
PT HYPOTENSIVE. MD NOTIFIED. SEE MAR FOR INTERVENTIONS
--- NOTE | 2020-10-04 11:16 | NUR ---
PT AMBULATED TO BATHROOM WITHOUT ASSISTANCE, STEADY GAIT. URINE SAMPLE OBTAINED. FRIEND AT BEDSIDE
[2020-10-04 11:35] VITALS: BP 100/59
--- NOTE | 2020-10-04 11:35 | NUR ---
PT BP IMPROVED.
[2020-10-04 11:43] LABS: AMPHETAMINE SCREEN, URINE Positive (Negative); BARBITURATE SCREEN, URINE Negative (Negative); BENZODIAZEPINE SCREEN, URINE Negative (Negative); CANNABINOID SCREEN, URINE Negative (Negative); COCAINE SCREEN, URINE Positive (Negative); METHADONE SCREEN, URINE Negative (Negative); OPIATE SCREEN, URINE Negative (Negative)
[2020-10-04 11:49] LABS: MICROSCOPIC INDICATED
== END 2020-10-04 12:11 | disposition home or self-care (01) ==
LOC: EDBD 06:02 → MERGE 06:58 → ED 06:58
DX: F10.229 Alcohol dependence with intoxication, unspecified (principal); R41.82 Altered mental status, unspecified; D53.9 Nutritional anemia, unspecified; F11.122 Opioid abuse with intoxication with perceptual disturbance; R94.31 Abnormal electrocardiogram [ECG] [EKG]; Y90.0 Blood alcohol level of less than 20 mg/100 ml
CPT/HCPCS: 36415; 71045; 80053; 80299; 80307; 80320; 81001; 84703; 85025; 87086; 93005; 96361; 96374; 99285; J2310; J7030; 80329; G0480